=== PATIENT | male | born 1990 | race African-American/Black ===

== ENCOUNTER 2024-11-12 19:54 | Emergency (ER) | payer SELFPAY ==
[~2024-11-12] VITALS: Ht 177.8 cm; Wt 78.9 kg
[2024-11-12 20:00] VITALS: TEMP 98.7
[2024-11-12] MEDS: ONDANSETRON HCL INJ 2MG/ML 2ML 2 MG/ML VIAL IV STA (20:19)
[2024-11-12] MEDS: SODIUM CHLORIDE 0.9% 1000ML 2,000 ML IV STA ×2 (20:20→21:31)
[2024-11-12 20:40] LABS: BASOPHILS % 0.3 % (0.0-1.0); EOSINOPHILS % 0.0 % (0.0-6.0); LYMPHOCYTES % 12.6 % (18.0-39.1); MONOCYTES % 3.4 % (4.4-11.3); NEUTROPHILS % 83.3 % (38.7-80.0); RED CELL DISTRIBUTION WIDTH 12.7 % (11.7-14.4)
[2024-11-12 21:04] LABS: EST GLOMERULAR FILTRATION RATE 30.0 ML/MIN (>=60)
[2024-11-12] MEDS ORDERED: IOPAMIDOL 370 MG/ML 100 ML INFUS..BTL INJ ONE (21:13)
[2024-11-12 21:45] VITALS: PULSE 89; RESP 16
[2024-11-13 00:18] LABS: EST GLOMERULAR FILTRATION RATE 54.0 ML/MIN (>=60)
[2024-11-13 00:39] VITALS: BP 104/61; PULSE 100; RESP 15; O2SAT 100
== END 2024-11-13 00:35 | disposition home or self-care (01) ==
LOC: ER 20:04
DX: R11.2 Nausea with vomiting, unspecified (principal); M62.82 Rhabdomyolysis; N19 Unspecified kidney failure; R10.12 Left upper quadrant pain
CPT/HCPCS: 36415; 74176; 80048; 80053; 82550; 83690; 84484; 85025; 99284; J2405; J7030; Q9967